=== PATIENT | female | born 1950 | race Two or more races ===

== ENCOUNTER 2023-08-24 08:44 | Emergency (ER) | payer OTHER ==
[~2023-08-24] VITALS: Ht 157.5 cm; Wt 83.9 kg
[2023-08-24] MEDS ORDERED: LEVOTHYROXINE25 MCG PO (09:14)
[2023-08-24] MEDS ORDERED: PRAVASTATIN SOD40 MG PO (09:15)
[2023-08-24] MEDS ORDERED: ZETIA10 MG PO (09:15)
[2023-08-24] MEDS ORDERED: TOPROL XL50 MG PO (09:15)
[2023-08-24] MEDS ORDERED: COZAAR100 MG PO (09:15)
[2023-08-24] MEDS ORDERED: NORVASC5 MG PO (09:16)
[2023-08-24 10:14] LABS: HEMATOCRIT 44.2 % (36.0-45.00); MEAN CELL VOLUME 94.6 fL (80.00-100.00); MEAN CORPUSCULAR HEMOGLOBIN 32.1 pg (27.00-32.0); MEAN CORPUSCULAR HGB CONC 33.9 g/dl (32.0-36.0); PLATELET COUNT 270 K/uL (150-450); RED BLOOD COUNT 4.67 M/uL (4.00-6.00); RED CELL DISTRIBUTION WIDTH 13.8 % (11.5-14.5)
[2023-08-24 10:39] LABS: CALCIUM 9.3 mg/dL (8.5-10.1); CREATININE SERUM 0.81 mg/dL (0.55-1.02); GFR 69.9; POTASSIUM 4.48 mEq/L (3.5-5.1)
[2023-08-24 10:40] LABS: PARTIAL THROMBOPLASTIN TIME 27.3 SECONDS (22.0-34.0); PROTHROMBIN TIME 10.5 SECONDS (9.0-11.5)
== END 2023-08-24 14:35 | disposition home or self-care (01) ==
LOC: ER 08:44
PROVIDERS: General Practice
DX: K52.9 Noninfective gastroenteritis and colitis, unspecified (principal); K52.89 Other specified noninfective gastroenteritis and colitis; I10 Essential (primary) hypertension; E03.8 Other specified hypothyroidism; Z88.4 Allergy status to anesthetic agent
CPT/HCPCS: 36415; 74177; 99284; Q9965

== ENCOUNTER 2024-01-21 06:29 | Day surgery (SDC) | payer OTHER ==
[2024-01-17 11:08] VITALS: BP 150/78
[2024-01-17 11:17] LABS: PH,URINE 5.5 (5.0-8.0); URINE APPEARANCE Clear; URINE BILIRRUBIN Negative (NEGATIVE); URINE BLOOD Negative; URINE COLOR Yellow; URINE GLUCOSE Negative (NEGATIVE); URINE KETONE Negative (NEGATIVE); URINE LEUKOCYTE Small; URINE NITRATE Negative; URINE PROTEIN Negative (NEGATIVE); URINE UROBILINOGEN 0.2 E.U./dl
[2024-01-17 11:20] LABS: URINE BACTERIA 161.2 uL (0.0-1933); URINE EPITHELIAL CELLS 8.1 uL (0.0-38.8); URINE RBC 7.9 uL (0.0-20.8); URINE WBC 28.9 uL (0.0-23.2)
[2024-01-17 11:26] LABS: HEMATOCRIT 40.4 % (36.0-45.00); MEAN CELL VOLUME 96.6 fL (80.00-100.00); MEAN CORPUSCULAR HEMOGLOBIN 33.5 pg (27.00-32.0); MEAN CORPUSCULAR HGB CONC 34.7 g/dl (32.0-36.0); PLATELET COUNT 239 K/uL (150-450); RED BLOOD COUNT 4.18 M/uL (4.00-6.00); RED CELL DISTRIBUTION WIDTH 14.1 % (11.5-14.5)
[2024-01-17 11:44] LABS: INR 1.01; PARTIAL THROMBOPLASTIN TIME 27.8 SECONDS (22.0-34.0)
[2024-01-17 12:40] LABS: ALBUMIN 4.1 gm/dL (3.4-5.0); BILIRUBIN TOTAL 0.65 mg/dL (0.3-1.2); CALCIUM 9.8 mg/dL (8.5-10.1); CREATININE SERUM 0.76 mg/dL (0.55-1.02); GFR 75.02; GLOBULINA 3.4 G/DL (2.4-3.5); POTASSIUM 4.75 mEq/L (3.5-5.1); TOTAL PROTEIN 7.5 gm/dL (6.4-8.2)
[~2024-01-21] VITALS: Ht 160 cm; Wt 89.8 kg
[~2024-01-21 06:29] MED LIST: COZAAR100 MG PO; LEVOTHYROXINE25 MCG PO; NORVASC5 MG PO; PRAVASTATIN SOD40 MG PO; ROSUVASTATIN CA20 MG PO; TOPROL XL50 MG PO; XALATAN; ZETIA10 MG PO
[2024-01-21] MEDS ORDERED: CEFAZOLIN SODIUM 1,000 MG VIAL ONE (12:34)
[2024-01-21] MEDS ORDERED: BUPIVACAINE HCL/Mpf 0.5% 10ML VIAL ONE (14:06)
[2024-01-21] MEDS ORDERED: ISOPROPYL ALCOHOL 30 ML OUNCE TOP ONE (15:00)
[2024-01-21] MEDS ORDERED: SUGAMMADEX SODIUM 200 MG/2 ML VIAL IV ONE (15:30)
[2024-01-21] MEDS ORDERED: MORPHINE SULFATE 2 MG/ML CARTRIDGE IV ONE (16:25)
[2024-01-21] MEDS ORDERED: MORPHINE SULFATE 4 MG/ML VIAL IV ONE (17:10)
[2024-01-21] MEDS ORDERED: hydrALAZINE HCL 20 MG VIAL ONE (17:35)
== END 2024-01-21 22:10 | disposition home or self-care (01) ==
LOC: CIR.AMB 06:29 → LAB 10:18 → CIR.AMB 10:20
PROVIDERS: ATTEND Orthopaedic Surgery Hand Surgery
DX: S52.531A Colles' fracture of right radius, initial encounter for closed fracture (principal); Z88.6 Allergy status to analgesic agent; I10 Essential (primary) hypertension; R06.81 Apnea, not elsewhere classified; H40.9 Unspecified glaucoma; L98.8 Other specified disorders of the skin and subcutaneous tissue
CPT/HCPCS: 25609; 25118; 25280; L8699